=== PATIENT | male | born 1970 | race African-American/Black ===

== ENCOUNTER → 2019-01-04 | Outpatient (CLI) | payer OTHER ==
--- NOTE | 2019-01-04 12:27 | MR ---
EXAMINATION TYPE: MR shoulder RT wo con DATE OF EXAM: 01/04/2019 COMPARISON: None HISTORY: Right shoulder pain TECHNIQUE: Multiplanar, multisequence imaging of the right shoulder is performed without contrast. FINDINGS: Rotator Cuff: There is a partial thickness intrasubstance tear of the anterior distal fibers of the s upraspinatus measuring 1.2 x 1.0 for centimeters. There are also 3 separate 3 mm insertional fiber ar ticular surface tears of the supraspinatus. There is moderate supraspinatus tendinopathy with alterat ion of the intrinsic signal. There is an intrasubstance tear of the myotendinous junction of the infraspinatus measuring 1 cm by a pproximately 1.3 cm. There is articular surface tear of the distal fibers of the infraspinatus measur ing 1.1 cm and articular surface fenestration with multifocal subcentimeter tears at the insertional fibers of the infraspinatus. There is mild infraspinatus tendinopathy with alteration of the intrinsi c signal. The teres minor and subscapularis are unremarkable in volume and signal. Acromioclavicular Joint: There is moderate acromioclavicular arthropathy with capsular hypertrophy, s mall marginal osteophytes and joint space narrowing. This does impress upon the supraspinatus creatin g mild internal impingement. Glenohumeral Joint: Slight chondral heterogeneity is seen of the humeral head with chondral thinning. Labrum: The labrum appears grossly intact given limitation of non-arthrogram study. Biceps Tendon: The long head of biceps is in normal location within bicipital groove. Bone marrow signal: No focal abnormal marrow signal is appreciated. Other: There is a very small amount of fluid in the subcoracoid and subdeltoid/subacromial bursa. IMPRESSION: 1. Multifocal partial-thickness tears of the supraspinatus including an intrasubstance tear measuring 1.2 cm and 3 separate insertional fiber 3 mm articular surface tears superimposed upon moderate tend inopathy. 2. Fenestration of the insertional fibers of the infraspinatus and 1.3 cm intrasubstance tear of the myotendinous junction superimposed upon mild infraspinatus tendinopathy. 3. Moderate acromio clavicular arthropathy resulting in mild internal impingement. 4. Very small amount of fluid in the subcoracoid and subdeltoid/subacromial bursa that may clinically correlate with bursitis.
== END ==
LOC: RADMRIMAIN 11:17
PROVIDERS: ATTEND Orthopaedic Surgery
DX: M75.101 Unspecified rotator cuff tear or rupture of right shoulder, not specified as traumatic (principal); M19.011 Primary osteoarthritis, right shoulder

== ENCOUNTER → 2019-02-22 | Outpatient (CLI) | payer SELFPAY ==
[2019-02-22 14:53] LABS: Potassium 4.8 mmol/L (3.5-5.1)
[2019-02-22 15:01] LABS: Basophils % (A) 1 %; Eosinophils # (A) 0.2 k/uL (0-0.7); Eosinophils % (A) 3 %; HCT 45.2 % (39.0-53.0); HGB 14.5 gm/dL (13.0-17.5); Lymphocytes % (A) 34 %; MCH 26.9 pg (25.0-35.0); MCHC 32.1 g/dL (31.0-37.0); Mean Platelet Volume 6.5; Monocytes # (A) 0.4 k/uL (0-1.0); Monocytes % (A) 6 %; Neutrophils # (A) 3.3 k/uL (1.3-7.7); Neutrophils % (A) 55 %; Platelet Count 296 k/uL (150-450); RBC 5.37 m/uL (4.30-5.90); RDW 13.7 % (11.5-15.5)
== END | disposition home or self-care (01) ==
LOC: LABPAT 13:08
PROVIDERS: ATTEND Orthopaedic Surgery
DX: Z01.818 Encounter for other preprocedural examination (principal); M75.41 Impingement syndrome of right shoulder; Z01.812 Encounter for preprocedural laboratory examination
CPT/HCPCS: 36415; 80051; 85025; 93005

== ENCOUNTER 2019-03-03 07:40 | Day surgery (SDC) | payer OTHER ==
[2019-02-28 12:56] VITALS: BMI 38.3
--- NOTE | 2019-03-02 20:19 | HP ---
HISTORY AND PHYSICAL David Lara is a 48-year-old patient seen with progressive right shoulder pain. We discussed treatment options. The patient elected to proceed with right shoulder arthroscopy. Consent was obtained. PAST MEDICAL HISTORY: Hypertension. PAST SURGICAL HISTORY: Knee arthroscopy. MEDICATIONS: Amlodipine. ALLERGIES: None. SOCIAL HISTORY: She denies tobacco use. PHYSICAL EXAMINATION: Flexion 130 degrees, abduction 120 degrees, external rotation is 30 degrees with pain and weakness. There is tenderness along the anterior lateral acromion and rotator cuff insertion site. Positive impingement sign at 90 degrees. Positive drop-arm sign. Distal neurovascular exam is intact. RADIOGRAPHS: Radiographs of the right shoulder revealed no obvious osseous abnormality. An MRI of the right shoulder revealed a partial rotator cuff tear. IMPRESSION: Right shoulder impingement with rotator cuff tear. PLAN: Right shoulder arthroscopy, subacromial decompression, probable arthroscopic rotator cuff repair and debridement. Surgery scheduled for 03/03/2019. MMODL / IJN: [id number] /
[~2019-03-03 07:40] MED LIST: ceFAZolin 3 GM in SODIUM CHLORIDE 0.9% 100 ML IVPB ONE; ceFAZolin IN SWFI 2 GM/20 ML SYRINGE IVP ONE
[2019-03-03] MEDS ORDERED: LACTATED RINGERS 1,000 ML IV ONE ×2 (08:21→10:05)
[2019-03-03] MEDS: LACTATED RINGERS 1,000 ML IV ONE (08:21)
[2019-03-03] MEDS ORDERED: MIDAZOLAM 2 MG/2 ML VIAL IVP ONE (08:32)
--- NOTE | 2019-03-03 08:41 | P.ONQ ---
Anesthesiology Proc Note - PNB - Peripheral Nerve Block Performed Right Interscalene Single Time Out Performed: Yes Procedure Start Time: 08:31 Procedure Stop Time: :36 Indication: Acute Post-Operative Pain, Requested by physician (Dr Wan) Sedation Type: Sedate with meaningful contact maintained Preparation: Sterile Prep Position: Supine Catheter: None Needle Types: On-Q Needle Size: 50mm (2") Needle Gauge: 18, 20 Technique: Ultrasound Injectate: 0.5% Ropivacaine (see comment for volume) (30 mls) Blood Aspirated: No Pain Paresthesia on Injection Noted: No Resistance on Injection: Normal Events: Uneventful and Well Tolerated
[2019-03-03 08:49] VITALS: TEMP 97.6
[2019-03-03] MEDS ORDERED: DEXAMETHASONE SOD PHOSPHATE 10 MG/ML 1 ML VIAL IV ONE (08:55)
[2019-03-03] MEDS ORDERED: ONDANSETRON 4 MG/2 ML VIAL IVP ONE (08:55)
[2019-03-03] MEDS ORDERED: PROPOFOL 10 MG/ML 20 ML VIAL IV ONE (09:52)
[2019-03-03] MEDS ORDERED: ROPIVACAINE 5 MG/ML 30 ML VIAL ONE (09:52)
[2019-03-03] MEDS ORDERED: MIDAZOLAM 2 MG/2 ML VIAL ONE (09:52)
[2019-03-03] MEDS ORDERED: LIDOCAINE 1% INJ 10MG/ML (20 ML MDV) ONE (09:52)
[2019-03-03] MEDS ORDERED: DEXAMETHASONE SOD PHOS (MDV) 100 MG/10 ML VIAL ONE (09:52)
[2019-03-03] MEDS ORDERED: SUCCINYLCHOLINE CHLORIDE 100 MG/5 ML SYR IV ONE (09:52)
[2019-03-03] MEDS ORDERED: fentaNYL (PF) 50 MCG/ML 2 ML AMP ONE (09:52)
--- NOTE | 2019-03-03 11:25 | P.OP ---
Date of Procedure: 03/03/19 Preoperative Diagnosis: Right shoulder impingement Postoperative Diagnosis: 1. Right shoulder rotator cuff tear 2. Right shoulder impingement 3. Right shoulder acromioclavicular joint osteoarthritis 4. Right shoulder partial long head biceps tendon tear Procedure(s) Performed: 1. Right shoulder arthroscopic rotator cuff repair 2. Right shoulder arthroscopic subacromial decompression 3. Right shoulder arthroscopic Thalia procedure 4. Right shoulder arthroscopic biceps tenotomy Implants: 14.75 swivel lock anchor Anesthesia: GETA, regional (Interscalene block) Surgeon: Felipe Wan Apprentice/Lineman #1: Matty Young Estimated Blood Loss (ml): 7 Pathology: none sent Condition: stable Disposition: PACU Indications for Procedure: 48-year-old patient seen with progressive right shoulder pain. After treatment options were discussed, he elected to proceed with arthroscopy. Operative Findings: See description of procedure Description of Procedure: Patient underwent an interscalene block by department of anesthesia for postoperative pain management. The patient was then taken to the operative suite. The patient underwent a general anesthetic by the department of anesthesia. The patient was placed into a lateral position and secured. There was appropriate padding of the bony prominence. Right shoulder was then prepped and draped in normal sterile orthopedic fashion. We placed the extremity in 10 pounds of longitudinal traction. A posterior incision was now made for a posterior working portal site. The trocar and cannula were inserted into the glenohumeral joint. Arthroscopy was initiated. Spinal needle was now inserted anteriorly, to ascertain the anterior working portal site. An incision was now made in that area, a trocar was inserted followed by a probe. There was some mild superficial fraying of the anterior labrum. There was some partial tearing long head biceps tendon hyperemia. I could visualize rotator cuff tear from the glenohumeral joint. I performed an arthroscopic biceps tenotomy. I debrided that superficial labral tear down to stable tissue. The residual labrum was stable. Instruments now removed from glenohumeral joint. Utilizing the posterior working portal site, the trocar and cannula were inserted into the subacromial space. Arthroscopy initiated. I made an incision 2 fingerbreadths lateral to the acromion. I introduced my trocar followed by my ArthroCare ablator. I now began ablating thick subacromial bursal tissue, which exposed the undersurface of the anterior acromion. There was diminished subacromial space. There was a very prominent anterior acromion. A motorized bur was introduced and a subacromial decompression was performed. I also excised some osteophytes off the inferior aspect of the distal clavicle. The AC joint was visualized and noted to be fairly arthritic. The motorized bur was introduced in the anterior portal site and a Thalia procedure was performed without difficulty, decompressing the AC joint nicely. I turned my attention to the rotator cuff. There was a 11.5 cm rotator cuff tear. I debrided the margins getting down to stable tendon tissue. I abraded the footprint with a motorized bur. With the assistance of Pb BELTRAN I passed 2 everted mattress suture through good bites of rotator cuff tendon. I now with the assistance of Pb BELTRAN repaired the tendon right back to the footprint utilizing one 4.75 Arthrex swivel lock anchor. All residual suture limbs were now clipped. We had good compression of the tendon along the entire footprint. I injected 1 mL Renue intra-articular. Instruments now removed from the portal sites. All portal sites were approximated with nylon suture. Sterile dressings were applied followed by a shoulder sling. Matty BELTRAN assisted in this complex case. The patient was awakened, transferred to a bed, and taken to recovery in stable condition.
[2019-03-03 12:55] VITALS: RESP 18
[2019-03-03 13:05] VITALS: BP 148/73; PULSE 87
== END 2019-03-03 13:17 | disposition home or self-care (01) ==
LOC: OR 07:40
PROVIDERS: ATTEND Orthopaedic Surgery
DX: M75.101 Unspecified rotator cuff tear or rupture of right shoulder, not specified as traumatic (principal); M75.41 Impingement syndrome of right shoulder; M19.011 Primary osteoarthritis, right shoulder; S46.111A Strain of muscle, fascia and tendon of long head of biceps, right arm, initial encounter; X58.XXXA Exposure to other specified factors, initial encounter; M25.711 Osteophyte, right shoulder; K21.9 Gastro-esophageal reflux disease without esophagitis; I10 Essential (primary) hypertension; Z79.899 Other long term (current) drug therapy
CPT/HCPCS: 29826; 29827; 29824; 64415; C1713; C1765; J2250; J1100 ×2; J0690; J2405; J2001; J3010; J2795; J0330; J2704

== ENCOUNTER 2019-09-04 03:56 | Emergency (ER) | payer BC, OTHER ==
[2019-09-04] MEDS ORDERED: SODIUM CHLORIDE 0.9% 1,000 ML IV STA (04:20)
[2019-09-04] MEDS ORDERED: MORPHINE SULFATE 4 MG/ML SYRINGE IV STA (04:20)
[2019-09-04] MEDS ORDERED: ONDANSETRON 4 MG/2 ML VIAL IVP STA (04:20)
--- NOTE | 2019-09-04 04:31 | ED ---
Abdominal Pain HPI - General Chief Complaint: Abdominal Pain Stated Complaint: Back Pain Time Seen by Provider: 09/04/19 04:20 Source: patient Mode of arrival: ambulatory Limitations: no limitations - History of Present Illness Initial Comments: David is a 49yo male who presents to the ER today for evaluation of right sided flank pain. Patient reports he developed sudden stabbing pain in his right flank radiating into his pelvis. Pain did not radiate into his testicles or genitals. Pain was associated with some nausea but no vomiting no change in bowel or bladder habits. Patient reports that on Thursday he was constipated to take some milk of magnesia and felt that his urine seemed dark had no dysuria hematuria or urinary frequency. Patient has no history of kidney stones in the past. Patient reports the pain is improved since arrival however he still has pain and when the pain gets severe he becomes nauseated. - Related Data Home Medications Medication Instructions Recorded Confirmed amLODIPine [Norvasc] 5 mg PO DAILY 02/28/19 03/03/19 Previous Rx's Medication Instructions Recorded HYDROcodone/APAP 7.5-325MG [Ventura 1 each PO Q6HR PRN #28 tab 03/03/19 7.5] Ondansetron [Zofran ODT] 4 mg PO Q8HR #12 tab 09/04/19 Ondansetron [Zofran ODT] 4 mg PO Q8HR #12 tab 09/04/19 Tamsulosin [Flomax] 0.4 mg PO DAILY #7 cap 09/04/19 Tamsulosin [Flomax] 0.4 mg PO DAILY #7 cap 09/04/19 Allergies Allergy/AdvReac Type Severity Reaction Status Date / Time No Known Allergies Allergy Verified 09/04/19 04:16 Review of Systems ROS Statement: Those systems with pertinent positive or pertinent negative responses have been documented in the HPI. ROS Other: All systems not noted in ROS Statement are negative. Past Medical History Past Medical History: No Reported History History of Any Multi-Drug Resistant Organisms: None Reported Additional Past Surgical History / Comment(s): right rotator cuff repair, Past Psychological History: No Psychological Hx Reported Smoking Status: Never smoker Past Alcohol Use History: None Reported Past Drug Use History: None Reported General Exam - General Exam Comments Initial Comments: Physical Exam GENERAL: Patient is well-developed and well-nourished. Patient is nontoxic and well- hydrated and is in no distress. HENT: Normocephalic, Atraumatic. EYES: PERRL, EOMI PULMONARY: Unlabored respirations. No audible rales rhonchi or wheezing was noted. CARDIOVASCULAR: There is a regular rate and rhythm without any murmurs gallops or rubs. ABDOMEN: Soft and nontender with normal bowel sounds. Tenderness to percussion of right flank No pulsatile masses SKIN: Skin is clear with no lesions or rashes and otherwise unremarkable. : Deferred NEUROLOGIC: Patient is alert and oriented x3. Moving all extremities spontaneously MUSCULOSKELETAL: Normal extremities with adequate strength and full range of motion. No lower extremity swelling or edema. No calf tenderness. PSYCHIATRIC: Normal psychiatric evaluation. Limitations: no limitations Course Vital Signs 09/04/19 09/04/19 09/04/19 04:12 07:08 07:47 Temperature 98.6 F 97.8 F Pulse Rate 88 68 66 Respiratory 17 20 18 Rate Blood Pressure 149/83 138/86 144/99 O2 Sat by Pulse 99 97 98 Oximetry Medical Decision Making - Medical Decision Making Patient was seen and evaluated history is obtained from patient morphine and Zofran were ordered for discomfort Labs with mildly elevated creatinine, urinalysis with hematuria consistent with nephrolithiasis Patient was reevaluated with only minimal improvement after morphine, Toradol was ordered CT scan was ordered as the patient has no history and has acute kidney injury CT reveals a distal ureteral 7 mm stone at the level of the bladder. There is some mild hydronephrosis. Patient was reevaluated results were discussed, patient's feeling better after Toradol. At this time patient's temporal plan for discharge home and outpatient follow-up. - Lab Data Result diagrams: 09/04/19 04:46 09/04/19 04:46 Lab Results 09/04/19 09/04/19 09/04/19 Range/Units 04:46 04:46 Unknown WBC 10.2 (3.8-10.6) k/uL RBC 5.20 (4.30-5.90) m/uL Hgb 13.9 (13.0-17.5) gm/dL Hct 44.8 (39.0-53.0) % MCV 86.2 (80.0-100.0) fL MCH 26.7 (25.0-35.0) pg MCHC 31.0 (31.0-37.0) g/dL RDW 14.3 (11.5-15.5) % Plt Count 257 (150-450) k/uL Neutrophils % 70 % Lymphocytes % 17 % Monocytes % 5 % Eosinophils % 6 % Basophils % 1 % Neutrophils # 7.2 (1.3-7.7) k/uL Lymphocytes # 1.7 (1.0-4.8) k/uL Monocytes # 0.5 (0-1.0) k/uL Eosinophils # 0.6 (0-0.7) k/uL Basophils # 0.1 (0-0.2) k/uL Sodium 142 (137-145) mmol/L Potassium 4.0 (3.5-5.1) mmol/L Chloride 108 H (98-107) mmol/L Carbon Dioxide 25 (22-30) mmol/L Anion Gap 9 mmol/L BUN 16 (9-20) mg/dL Creatinine 1.28 H (0.66-1.25) mg/dL Est GFR (CKD-EPI)AfAm 75 (>60 ml/min/1.73 sqM) Est GFR (CKD-EPI)NonAf 65 (>60 ml/min/1.73 sqM) Glucose 115 H (74-99) mg/dL Calcium 9.8 (8.4-10.2) mg/dL Total Bilirubin 0.3 (0.2-1.3) mg/dL AST 28 (17-59) U/L ALT 30 (21-72) U/L Alkaline Phosphatase 108 (38-126) U/L Total Protein 7.4 (6.3-8.2) g/dL Albumin 4.1 (3.5-5.0) g/dL Lipase 154 (23-300) U/L Urine Color Light Yellow Urine Appearance Clear (Clear) Urine pH 6.5 (5.0-8.0) Ur Specific Crescent 1.012 (1.001-1.035) Urine Protein Negative (Negative) Urine Glucose (UA) Negative (Negative) Urine Ketones Negative (Negative) Urine Blood Moderate H (Negative) Urine Nitrite Negative (Negative) Urine Bilirubin Negative (Negative) Urine Urobilinogen <2.0 (<2.0) mg/dL Ur Leukocyte Esterase Negative (Negative) Urine RBC 143 H (0-5) /hpf Urine WBC 3 (0-5) /hpf Ur Squamous Epith Cells <1 (0-4) /hpf Urine Mucus Rare H (None) /hpf Disposition Clinical Impression: Flank pain Disposition: HOME SELF-CARE Condition: Stable Instructions (If sedation given, give patient instructions): Kidney Stones (ED) Additional Instructions: Follow up with your primary doctor within 2-3 days. Follow up with a Urologist this week (we will give you a list of urologists, but make sure they accept your insurance). ?Please call as soon as possible for an appointment. You will be given a prescription for Flomax (0.4mg daily) please chart picker the medication as soon as possible and take as directed. Use Motrin (also called Ibuprofen or Advil) 400-800 mg every 6 hours as needed for pain. Take this with food, if you have any stomach discomfort while taking Motrin, you can use TUMS to help. Drink plenty of fluids, avoid caffeine & alcohol. Please continue taking your home medications as directed. Do not use alcohol when taking any medication (especially antibiotics, tylenol or other pain medication) unless you check with the doctor or pharmacist. Any worsening pain, fever, chills, difficulty urinating, or any other concerns, please see your doctor immediately or return to Emergency Department right away. Prescriptions: Tamsulosin [Flomax] 0.4 mg PO DAILY #7 cap Tamsulosin [Flomax] 0.4 mg PO DAILY #7 cap Ondansetron [Zofran ODT] 4 mg PO Q8HR #12 tab Ondansetron [Zofran ODT] 4 mg PO Q8HR #12 tab Is patient prescribed a controlled substance at d/c from ED?: No Referrals: Joe Heard MD [Primary Care Provider] - 1-2 days Channing Florence MD [STAFF PHYSICIAN] - 1-2 days
[2019-09-04 04:48] LABS: Appearance,Urine Clear (Clear); Bilirubin,Urine Negative (Negative); Blood,Urine Moderate (Negative); Color,Urine Light Yellow; Glucose,Urine (UA) Negative (Negative); Ketones,Urine Negative (Negative); Leukocyte Esterase,Urine Negative (Negative); Mucus,Urine Rare /hpf; Nitrite,Urine Negative (Negative); PH, Urine 6.5 (5.0-8.0); Protein,Urine Negative (Negative); RBC,Urine 143 /hpf (0-5); Specific Gravity,Urine 1.012 (1.001-1.035); Squamous Epithelial Cell,Urine <1 /hpf (0-4); Urobilinogen,Urine <2.0 mg/dL (<2.0); WBC,Urine 3 /hpf (0-5)
[2019-09-04 04:55] LABS: Basophils # (A) 0.1 k/uL (0-0.2); Basophils % (A) 1 %; Eosinophils # (A) 0.6 k/uL (0-0.7); Eosinophils % (A) 6 %; HCT 44.8 % (39.0-53.0); HGB 13.9 gm/dL (13.0-17.5); Lymphocytes # (A) 1.7 k/uL (1.0-4.8); Lymphocytes % (A) 17 %; MCH 26.7 pg (25.0-35.0); MCV 86.2 fL (80.0-100.0); Mean Platelet Volume 6.4; Monocytes # (A) 0.5 k/uL (0-1.0); Monocytes % (A) 5 %; Neutrophils # (A) 7.2 k/uL (1.3-7.7); Neutrophils % (A) 70 %; Platelet Count 257 k/uL (150-450); RDW 14.3 % (11.5-15.5); WBC 10.2 k/uL (3.8-10.6)
--- NOTE | 2019-09-04 05:05 | XR ---
EXAM: XR Abdomen, 1 View CLINICAL HISTORY: Abdominal pain. TECHNIQUE: Frontal supine view of the abdomen/pelvis. COMPARISON: None. FINDINGS: Lower thorax: There is elevation of the right hemidiaphragm. No pleural effusions. The heart is normal in size. Intraperitoneal space: Nonspecific bowel gas. No free air. Gastrointestinal tract: Unremarkable. No dilation. Bones/joints: Degenerative disc disease and mild osteoarthritic changes. Vasculature: Pelvic phlebolith are noted. Other findings: Mild to moderate quantity of stool. IMPRESSION: Nonspecific bowel gas pattern. No free air.
[2019-09-04 05:06] LABS: Albumin 4.1 g/dL (3.5-5.0); Calcium 9.8 mg/dL (8.4-10.2); Total Bilirubin 0.3 mg/dL (0.2-1.3); Total Protein 7.4 g/dL (6.3-8.2)
[2019-09-04] MEDS ORDERED: KETOROLAC 30 MG/ML 1 ML VIAL IVP STA (05:31)
[2019-09-04] MEDS ORDERED: ACET/COD 300 MG/30 MG STARTER PACK 6 TAB BTL PO STA (05:37)
--- NOTE | 2019-09-04 07:22 | CT ---
EXAM: CT Abdomen and Pelvis Without Intravenous Contrast, Renal Stone Protocol CLINICAL HISTORY: ITS.REASON CT Reason: flank pain, hematuria TECHNIQUE: Axial computed tomography images of the abdomen and pelvis without intravenous contrast using renal protocol. CTDI is 26.28 mGy and DLP is 1654.9 mGy-cm. This CT exam was performed using one or more of the following dose reduction techniques: automated exposure control, adjustment of the mA and/or kV according to patient size, and/or use of iterative reconstruction technique. COMPARISON: No relevant prior studies available. FINDINGS: Lower thorax: Unremarkable as visualized. ABDOMEN: Liver: Unremarkable. Gallbladder and bile ducts: Unremarkable. No calcified stones. No ductal dilation. Pancreas: Unremarkable. No ductal dilation. Spleen: Unremarkable. No splenomegaly. Adrenals: Unremarkable. No mass. Right kidney and ureter: 7 mm mid to distal right ureteral stone noted in the pelvis with resulting mild to moderate right hydroureteronephrosis and right perinephric and periureteral fat stranding identified. Left kidney and ureter: The left kidney is unremarkable. No obstructing stones. No hydronephrosis. Stomach and bowel: Evaluation of bowel mucosa is limited without contrast. No obstruction. PELVIS: Appendix: A normal caliber appendix is noted in the right lower quadrant. Bladder: Unremarkable. No stones. Reproductive: Unremarkable as visualized. ABDOMEN and PELVIS: Intraperitoneal space: Unremarkable. No free air. No significant fluid collection. Bones/joints: Unremarkable. No acute fracture. No dislocation. Soft tissues: Unremarkable. Vasculature: Unremarkable. No abdominal aortic aneurysm. Lymph nodes: Unremarkable. No enlarged lymph nodes. IMPRESSION: 7 mm mid to distal right ureteral stone noted in the pelvis with resulting mild to moderate right hydroureteronephrosis and right perinephric and periureteral fat stranding identified.
[2019-09-04 07:47] VITALS: BP 144/99; PULSE 66; RESP 18; TEMP 97.8
== END 2019-09-04 07:51 | disposition home or self-care (01) ==
LOC: EC 03:56
DX: R10.2 Pelvic and perineal pain (principal); R79.89 Other specified abnormal findings of blood chemistry; R31.9 Hematuria, unspecified; N13.2 Hydronephrosis with renal and ureteral calculous obstruction; R11.0 Nausea
CPT/HCPCS: 36415; 80053; 83690; 85025; 81001; 74018; 74176; 99284; 96374; 96375 ×2; 96361 ×2; J2270; J2405; J1885

== ENCOUNTER → 2019-10-22 | Outpatient (CLI) | payer OTHER ==
--- NOTE | 2019-10-22 08:00 | MR ---
EXAMINATION TYPE: MR shoulder RT wo con DATE OF EXAM: 10/22/2019 7:47 AM COMPARISON: Previous study dated 01/04/2019. HISTORY: Rt. shoulder pain TECHNIQUE: Multiplanar, multisequence imaging of the right shoulder is performed without contrast. FINDINGS: There is evidence of previous rotator cuff repair. There is no evidence of an os acromiale. There continues to be moderate inflammatory hypertrophic kathrine nges in the right AC joint. There is a 1.5 cm rim rent tear involving the posterior fibers of the sup raspinatus tendon. There is no full-thickness tear or muscular retraction. There is minimal pseudocys tic change in the humeral head, an indirect sign of impingement. The cartilaginous glenoid labrum appears intact. The biceps tendon is attenuated within the biceps tendon groove. I cannot follow its intra-articular course with certainty. IMPRESSION: 1. POSTSURGICAL CHANGE. 2. RECOMMEND TEAR OF THE POSTERIOR FIBERS OF THE SUPERIOR SPINATUS TENDON MEASURING 1.5 CM. 3. I'M UNABLE TO FOLLOW THE INTRA-ARTICULAR COURSE OF THE BICEPS TENDON TO THE BICEPS TENDON ANCHOR.
== END | disposition home or self-care (01) ==
LOC: RADMRIMAIN 07:07
PROVIDERS: ATTEND Orthopaedic Surgery
DX: M25.561 Pain in right knee (principal); Z98.890 Other specified postprocedural states

== ENCOUNTER → 2020-04-30 | Outpatient (CLI) | payer OTHER ==
[2020-04-30 15:36] LABS: Potassium 4.4 mmol/L (3.5-5.1)
[2020-04-30 15:44] LABS: Basophils % (A) 1 %; Eosinophils # (A) 0.2 k/uL (0-0.7); Eosinophils % (A) 2 %; HCT 44.8 % (39.0-53.0); HGB 14.3 gm/dL (13.0-17.5); Lymphocytes # (A) 2.1 k/uL (1.0-4.8); Lymphocytes % (A) 26 %; MCH 28.2 pg (25.0-35.0); Mean Platelet Volume 7.5; Monocytes # (A) 0.4 k/uL (0-1.0); Monocytes % (A) 5 %; Neutrophils % (A) 63 %; Platelet Count 292 k/uL (150-450); RBC 5.09 m/uL (4.30-5.90); RDW 13.7 % (11.5-15.5); WBC 7.9 k/uL (3.8-10.6)
== END | disposition home or self-care (01) ==
LOC: LABPAT 14:23
PROVIDERS: ATTEND Orthopaedic Surgery
DX: Z01.818 Encounter for other preprocedural examination (principal); M75.101 Unspecified rotator cuff tear or rupture of right shoulder, not specified as traumatic
CPT/HCPCS: 36415; 80051; 85025

== ENCOUNTER 2020-05-09 05:29 | Day surgery (SDC) | payer BC, OTHER ==
[2020-05-07 16:09] VITALS: BMI 43.2
--- NOTE | 2020-05-08 14:32 | HP ---
HISTORY AND PHYSICAL Surgery scheduled for 05/09/2020. David Lara is a 50-year-old patient seen with progressive right shoulder pain. We discussed options. He elected to proceed with right shoulder arthroscopy. Consent regarding procedure was obtained. PAST MEDICAL HISTORY: Hypertension. PAST SURGICAL HISTORY: Right shoulder arthroscopy, knee arthroscopy. MEDICATIONS: Amlodipine. ALLERGIES: None. SOCIAL HISTORY: Denies tobacco use. PHYSICAL EXAMINATION: Evaluation of the right shoulder: Flexion 170, abduction 170, external rotation 70 with pain and weakness. There is tenderness along the anterolateral acromion rotator cuff insertion site. His distal neurovascular exam is intact. Radiographs of the right shoulder revealed a conversion to a flat anterior acromion, evidence for previous AC joint resection. A MRI of the right shoulder revealed a 1.5 cm rim rent tear of the supraspinatus. IMPRESSION: 1. Right shoulder rotator cuff tendon tear. 2. Hypertension. PLAN: Right shoulder arthroscopy, rotator cuff tendon repair and debridement. MMODL / IJN: [id number] /
[2020-05-09] MEDS ORDERED: ONDANSETRON 4 MG/2 ML VIAL IVP ONE (05:45)
[2020-05-09] MEDS ORDERED: MIDAZOLAM 2 MG/2 ML VIAL IV PRN (05:45)
[2020-05-09] MEDS ORDERED: HYDROmorphone 0.5 MG/0.5 ML SYRINGE IVP PRN (05:45)
[2020-05-09] MEDS ORDERED: DEXAMETHASONE SOD PHOSPHATE 10 MG/ML 1 ML VIAL IV ONE (05:45)
[2020-05-09] MEDS ORDERED: LACTATED RINGERS 1,000 ML IV SCH (05:45)
[2020-05-09] MEDS ORDERED: SCOPOLAMINE 1.5MG/72HR PATCH TRANSDERM ONE (05:45)
[2020-05-09] MEDS ORDERED: ONDANSETRON 4 MG/2 ML VIAL ONE (06:24)
[2020-05-09 06:29] VITALS: RESP 16
[2020-05-09] MEDS ORDERED: MIDAZOLAM 2 MG/2 ML VIAL ONE (07:21)
[2020-05-09] MEDS ORDERED: fentaNYL (PF) 50 MCG/ML 2 ML AMP ONE (07:21)
[2020-05-09] MEDS ORDERED: SUCCINYLCHOLINE CHLORIDE VIAL 200 MG/10 ML VIAL IV ONE (07:21)
[2020-05-09] MEDS ORDERED: ROPIVACAINE 5 MG/ML 30 ML VIAL ONE (07:21)
[2020-05-09] MEDS ORDERED: PROPOFOL 10 MG/ML 20 ML VIAL IV ONE (07:21)
[2020-05-09] MEDS ORDERED: LIDOCAINE 1% INJ 10MG/ML (20 ML MDV) ONE (07:21)
[2020-05-09] MEDS: ceFAZolin 3 GM in SODIUM CHLORIDE 0.9% 100 ML IVPB ONE ×2 (07:33→07:35)
[2020-05-09] MEDS ORDERED: LACTATED RINGERS 1,000 ML IV ONE (09:15)
--- NOTE | 2020-05-09 09:21 | P.OP ---
Date of Procedure: 05/09/20 Preoperative Diagnosis: Right shoulder rotator cuff tear Postoperative Diagnosis: Right shoulder rotator cuff tear Procedure(s) Performed: Right shoulder arthroscopic rotator cuff repair Implants: 44.75 Arthrex swivel lock anchors Anesthesia: GETA, regional (Interscalene block) Surgeon: Felipe Wan Scoop Driver #1: Matty Young Estimated Blood Loss (ml): 7 Pathology: none sent Condition: stable Disposition: PACU Indications for Procedure: 50-year-old patient who is seen with persistent right shoulder pain with previous history of arthroscopy. MRI revealed recurrent tear. We discussed arthroscopy. He was agreeable. Operative Findings: See description of procedure Description of Procedure: Patient underwent an interscalene block by department of anesthesia. The patient was then taken to the operative suite. The patient underwent a general anesthetic by the department of anesthesia. The patient was placed into a lateral position and secured. There was appropriate padding of the bony prominence. Right shoulder was then prepped and draped in normal sterile orthopedic fashion. We placed the extremity in 10 pounds of longitudinal traction. A posterior incision was now made for a posterior working portal site. The trocar and cannula were inserted into the glenohumeral joint. Arthroscopy was initiated. Spinal needle was now inserted anteriorly, to ascertain the anterior working portal site. An incision was now made in that area, a trocar was inserted followed by a probe. There was some mild grade 1 chondromalacia of the humeral head. The biceps tendon was absent consistent with previous biceps tenotomy. The labrum was probed and found to be stable. At this point instruments removed from glenohumeral joint. Utilizing the posterior working portal site, the trocar and cannula were inserted into the subacromial space. Arthroscopy initiated. I made an incision 2 fingerbreadths lateral to the acromion. I introduced my trocar followed by my ArthroCare ablator. I now began ablating thick subacromial bursal tissue, which exposed the undersurface of the anterior acromion. There was evidence of previous decompression with satisfactory subacromial space present. There was evidence of previous Thalia procedure was stable appearing acromioclavicular joint. I turned my attention to the rotator cuff. I began probing the rotator cuff tendon and noted a perforation along the anterior aspect of the supraspinatus. Upon additional probing it was just anterior to the previous repair. I began abrading the tip tissue and noted that the tissue was very thin as I began debris and tissue and noted that the thin perforation area also included the area of the previous repair. I now removed any residual sutures from previous repair. I then made sure I got down to good jeong tendon tissue peripherally. The defect measured approximately 2 cm. I introduced my motorized bur and abraded the footprint area, getting some petechial bleeding. I now made an accessory portal site off the lateral aspect of the acromion. I punched 2 holes medial for medial row fixation with the assistance of Pb BELTRAN carefully tapping the punch with a mallet as I held the punch and the camera. I now introduced both anchors into the pre-punched holes and Pb BELTRAN tapped them with the mallet as I held anchors and the camera. Pb BELTRAN now screwed the anchors in place a while I held the anchor guide and camera. All 8 limbs of suture were now passed through good bites of rotator cuff tendon. I now punched 2 holes for lateral row fixation again I held the punch and camera while Pb BELTRAN used a mallet to tap in the punch. We now passed sutures through both anchors and individually I introduced the anchors into the pre-punch holes I held the anchor guide in position with one hand holding the camera with the other hand while Pb BELTRAN tensioned the sutures and screwed in the anchors one at a time. All residual suture limbs were now clipped. We had good compression of the tendon along the entire footprint. I injected 1 mL Renyte intra-articular. Instruments now removed from the portal sites. All portal sites were approximated with nylon suture. Sterile dressings were applied followed by a shoulder immobilizer. Matty BELTRAN assisted in this case. The patient was awakened, transferred to a bed, and taken to recovery in stable condition.
[2020-05-09 09:31] VITALS: TEMP 98
--- NOTE | 2020-05-09 09:34 | P.ANPRN ---
Procedure Note - Anesthesia - Nerve Block Performed Right Interscalene Date of Procedure: 05/09/20 Procedure Start Time: 06:51 Procedure Stop Time: 07:05 Location of Patient: PreOp Indication: Acute Post-Operative Pain, Requested by Surgeon (Dr Wan) Sedation Type: Sedate with meaningful contact maintained Preparation: Sterile Prep Position: Supine Catheter: None Needle Types: Pajunk Needle Gauge: 21 Ultrasound used to visualize needle placement: Yes Ultrasound used to observe medication spread: Yes Injectate: 0.5% Ropivacaine (see comment for volume) (20cc) Blood Aspirated: No Pain Paresthesia on Injection Noted: No Resistance on Injection: Normal Image Stored and Saved: Yes Events: Uneventful and Well Tolerated
[2020-05-09 11:36] VITALS: BP 138/81; PULSE 71
== END 2020-05-09 11:35 | disposition home or self-care (01) ==
LOC: OR 05:29
PROVIDERS: ATTEND Orthopaedic Surgery
DX: M75.101 Unspecified rotator cuff tear or rupture of right shoulder, not specified as traumatic (principal); M94.211 Chondromalacia, right shoulder; I10 Essential (primary) hypertension; Z79.899 Other long term (current) drug therapy
CPT/HCPCS: 64415; 76942; 29827; 29826; C1713 ×2; Q4212; J2250; J0330; J1100; J0690; J2405; J2001; J3010; J2795; J2704

== ENCOUNTER → 2023-12-11 | Outpatient (CLI) | payer BC ==
[2023-12-11 18:43] LABS: HCT 47.6 % (39.6-50.0); HGB 15.2 g/dL (13.0-17.0); MCH 27.8 pg (27.0-32.0); MCHC 31.9 g/dL (32.0-37.0); NRBC Per 100 WBC 0 X 10*3/uL (0.00-0.01); Platelet Count 288 X 10*3/uL (140-440); RBC 5.47 X 10*6/uL (4.40-5.60); RDW 13.8 % (11.5-14.5); WBC 7.43 X 10*3/uL (4.50-10.00)
[2023-12-11 19:10] LABS: ALT 45 U/L (10-49); AST 38 U/L (14-35); Albumin 4.2 g/dL (3.8-4.9); Albumin/Globulin Ratio 1.35 Ratio (1.60-3.17); Alkaline Phosphatase 94 U/L (41-126); BUN/Creat Ratio 11.55 Ratio (12.00-20.00); Blood Urea Nitrogen 12.7 mg/dL (9.0-27.0); Calcium 9.7 mg/dL (8.7-10.3); Chloride 105 mmol/L (96-109); Chol/HDL Ratio 4.57 Ratio; Globulin 3.1 g/dL (1.6-3.3); Glucose 106 mg/dL (70-110); LDL Cholesterol,Calculated 111.9 mg/dL (0.0-131.0); Potassium 3.7 mmol/L (3.5-5.5); Sodium 143 mmol/L (135-145); Total Bilirubin 0.4 mg/dL (0.3-1.2); Total Protein 7.3 g/dL (6.2-8.2)
== END | disposition home or self-care (01) ==
LOC: LABWHC1 11:53
PROVIDERS: ATTEND Student in an Organized Health Care Education/Training Program
DX: I12.9 Hypertensive chronic kidney disease with stage 1 through stage 4 chronic kidney disease, or unspecified chronic kidney disease (principal); I49.3 Ventricular premature depolarization; E11.22 Type 2 diabetes mellitus with diabetic chronic kidney disease; E78.5 Hyperlipidemia, unspecified; N18.9 Chronic kidney disease, unspecified
CPT/HCPCS: 36415; 80053; 80061; 82306; 83036; 84443; 85027

== ENCOUNTER → 2024-08-17 | Outpatient (CLI) | payer BC ==
[2024-08-17 16:46] LABS: Basophils # (A) 0.04 X 10*3/uL (0.00-0.10); Basophils % (A) 0.5 %; Eosinophils # (A) 0.12 X 10*3/uL (0.04-0.35); Eosinophils % (A) 1.6 %; HGB 12.6 g/dL (13.0-17.0); Lymphocytes % (A) 18.4 %; MCH 27.6 pg (27.0-32.0); MCHC 32.3 g/dL (32.0-37.0); MCV 85.3 FL (80.0-97.0); Mean Platelet Volume 10.4 FL (9.5-12.2); Monocytes # (A) 0.59 X 10*3/uL (0.20-1.00); Monocytes % (A) 7.7 %; NRBC Per 100 WBC 0 X 10*3/uL (0.00-0.01); Neutrophils # (A) 5.41 X 10*3/uL (1.80-7.70); Platelet Count 195 X 10*3/uL (140-440); RBC 4.57 X 10*6/uL (4.40-5.60); RDW 13.5 % (11.5-14.5); WBC 7.62 X 10*3/uL (4.50-10.00)
[2024-08-17 17:02] LABS: ALT 22 U/L (10-49); AST 33 U/L (14-35); Albumin 4.2 g/dL (3.8-4.9); Alkaline Phosphatase 68 U/L (41-126); BUN/Creat Ratio 13.17 Ratio (12.00-20.00); Blood Urea Nitrogen 15.8 mg/dL (9.0-27.0); Calcium 9.3 mg/dL (8.7-10.3); Carbon Dioxide 22.2 mmol/L (21.6-31.8); Chloride 97 mmol/L (96-109); Chol/HDL Ratio 2.69 Ratio; Glucose 68 mg/dL (70-110); LDL Cholesterol,Calculated 44.4 mg/dL (0.0-131.0); Potassium 3.3 mmol/L (3.5-5.5); Prostate Specific Antigen 2.93 ng/mL (0.000-3.500); Sodium 141 mmol/L (135-145); Total Bilirubin 1.1 mg/dL (0.3-1.2); Total Protein 7.2 g/dL (6.2-8.2); VLDL Calculation 15.86 mg/dL (5.00-40.00)
== END | disposition home or self-care (01) ==
LOC: LABWHC1 12:31
PROVIDERS: ATTEND Internal Medicine Geriatric Medicine
DX: I51.7 Cardiomegaly (principal); E11.65 Type 2 diabetes mellitus with hyperglycemia; N40.0 Benign prostatic hyperplasia without lower urinary tract symptoms
CPT/HCPCS: 36415; 80053; 80061; 83036; 84153; 84443; 85025

== ENCOUNTER → 2024-11-10 | Outpatient (CLI) | payer BC ==
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
== END | disposition home or self-care (01) ==
LOC: RADMRIMAIN 11:11
PROVIDERS: ATTEND Orthopaedic Surgery
DX: S83.241A Other tear of medial meniscus, current injury, right knee, initial encounter (principal); M17.11 Unilateral primary osteoarthritis, right knee; M94.261 Chondromalacia, right knee

== ENCOUNTER → 2024-12-19 | Outpatient (CLI) | payer BC ==
[2024-12-20 02:47] LABS: Anion Gap 12.4 mmol/L (4.00-12.00); Carbon Dioxide 24.6 mmol/L (21.6-31.8); Potassium 3.5 mmol/L (3.5-5.5)
[2024-12-20 02:50] LABS: HGB 13.4 g/dL (13.0-17.0); MCH 27.8 pg (27.0-32.0); MCHC 30.5 g/dL (32.0-37.0); MCV 91.3 FL (80.0-97.0); Mean Platelet Volume 10.9 FL (9.5-12.2); NRBC Per 100 WBC 0 X 10*3/uL (0.00-0.01); Platelet Count 268 X 10*3/uL (140-440); RBC 4.82 X 10*6/uL (4.40-5.60); RDW 13.8 % (11.5-14.5); WBC 7.24 X 10*3/uL (4.50-10.00)
[2024-12-20 02:51] LABS: Basophils # (A) 0.05 X 10*3/uL (0.00-0.10); Basophils % (A) 0.7 %; Eosinophils # (A) 0.18 X 10*3/uL (0.04-0.35); Eosinophils % (A) 2.5 %; Lymphocytes # (A) 2.44 X 10*3/uL (0.90-5.00); Lymphocytes % (A) 33.7 %; Monocytes # (A) 0.43 X 10*3/uL (0.20-1.00); Monocytes % (A) 5.9 %; Neutrophils # (A) 4.11 X 10*3/uL (1.80-7.70); Neutrophils % (A) 56.8 %
== END | disposition home or self-care (01) ==
LOC: LABPAT 15:39
PROVIDERS: ATTEND Orthopaedic Surgery
DX: Z01.812 Encounter for preprocedural laboratory examination (principal); M23.91 Unspecified internal derangement of right knee
CPT/HCPCS: 80051; 85025

== ENCOUNTER → 2025-01-31 | Outpatient (CLI) | payer BC | END | disposition home or self-care (01) | LOC: LABPAT 15:25 | PROVIDERS: ATTEND Orthopaedic Surgery | DX: Z01.812 Encounter for preprocedural laboratory examination (principal); M17.12 Unilateral primary osteoarthritis, left knee; Z22.322 Carrier or suspected carrier of Methicillin resistant Staphylococcus aureus | CPT/HCPCS: 87070 ==

== ENCOUNTER → 2025-02-28 | Outpatient (CLI) | payer BC ==
[2025-02-28 18:13] LABS: Basophils # (A) 0.01 X 10*3/uL (0.00-0.10); Basophils % (A) 0.1 %; Eosinophils # (A) 0.63 X 10*3/uL (0.04-0.35); Eosinophils % (A) 7.3 %; HCT 46.2 % (39.6-50.0); HGB 14.9 g/dL (13.0-17.0); Lymphocytes # (A) 2.55 X 10*3/uL (0.90-5.00); Lymphocytes % (A) 29.6 %; MCH 27.4 pg (27.0-32.0); MCHC 32.3 g/dL (32.0-37.0); MCV 84.9 FL (80.0-97.0); Mean Platelet Volume 10.8 FL (9.5-12.2); Monocytes # (A) 0.56 X 10*3/uL (0.20-1.00); Monocytes % (A) 6.5 %; NRBC Per 100 WBC 0 X 10*3/uL (0.00-0.01); Neutrophils # (A) 4.84 X 10*3/uL (1.80-7.70); Neutrophils % (A) 56.2 %; Platelet Count 246 X 10*3/uL (140-440); RBC 5.44 X 10*6/uL (4.40-5.60); RDW 13.9 % (11.5-14.5); WBC 8.62 X 10*3/uL (4.50-10.00)
[2025-02-28 18:58] LABS: INR 0.99 sec (0.93-1.11); Prothrombin Time 11.1 sec (9.9-11.9)
[2025-02-28 19:10] LABS: Chol/HDL Ratio 4.49 Ratio; LDL Cholesterol,Calculated 134.7 mg/dL (0.0-131.0)
[2025-02-28 19:15] LABS: ALT 27 U/L (10-49); AST 34 U/L (14-35); Albumin 4.8 g/dL (3.8-4.9); Albumin/Globulin Ratio 1.37 Ratio (1.60-3.17); Alkaline Phosphatase 84 U/L (41-126); Blood Urea Nitrogen 15.6 mg/dL (9.0-27.0); Carbon Dioxide 23.9 mmol/L (21.6-31.8); Chloride 105 mmol/L (96-109); Globulin 3.5 g/dL (1.6-3.3); Glucose 66 mg/dL (70-110); Sodium 143 mmol/L (135-145); Total Bilirubin 0.9 mg/dL (0.3-1.2); Total Protein 8.3 g/dL (6.2-8.2)
== END | disposition home or self-care (01) ==
LOC: LABWHC1 15:20
PROVIDERS: ATTEND Internal Medicine Geriatric Medicine
DX: Z00.00 Encounter for general adult medical examination without abnormal findings (principal); E11.65 Type 2 diabetes mellitus with hyperglycemia; E78.2 Mixed hyperlipidemia; R23.3 Spontaneous ecchymoses
CPT/HCPCS: 36415; 80053; 80061; 83036; 84443; 85025; 85610

== ENCOUNTER 2025-03-13 07:58 | Day surgery (SDC) | payer BC ==
--- NOTE | 2025-03-13 05:26 | HP ---
HISTORY AND PHYSICAL DATE OF SURGERY: 03/13/2025 David Lara is a 54-year-old gentleman seen with symptomatic left knee osteoarthritis. After having treatment options discussed, he elected to proceed with left total knee arthroplasty. Consent regarding procedure was obtained. Medical clearance was provided by Dr. Fredo Ibarra. PAST MEDICAL HISTORY: Hypertension. SURGICAL HISTORY: Knee arthroscopy, total hip arthroplasty, shoulder arthroscopy. DAILY MEDICATIONS: Aspirin. ALLERGIES: None reported. SOCIAL HISTORY: Denies current tobacco use. PHYSICAL EVALUATION OF THE LEFT KNEE: His range of motion is 0 to 120 degrees. There is a mild effusion. Tenderness of medial joint line. Positive medial Bal's. Ligaments stable. Hip rotation without pain. Distal neurovascular exam is intact. IMAGING STUDIES: Radiographs of the left knee revealed severe osteoarthritic changes. IMPRESSION: 1. Left knee osteoarthritis. 2. Hypertension. PLAN: Left total knee arthroplasty. MMODL / IJN: [id number] /
[~2025-03-13 07:58] MED LIST changes: +LACTATED RINGERS 1,000 ML IV SCH; +TRANEXAMIC 1,000 MG/100ML-NACL 1,000 MG in SALINE 1 100ML.BAG IVPB PRN; -ceFAZolin 3 GM in SODIUM CHLORIDE 0.9% 100 ML IVPB ONE; -ceFAZolin IN SWFI 2 GM/20 ML SYRINGE IVP ONE
[2025-03-13] MEDS: ACETAMINOPHEN TAB 500 MG TAB PO PRN (08:21)
[2025-03-13] MEDS: MELOXICAM 7.5 MG TAB PO PRN (08:21)
[2025-03-13] MEDS: LACTATED RINGERS 1,000 ML IV ONE ×2 (08:26→13:16)
[2025-03-13] MEDS: ONDANSETRON 4 MG/2 ML VIAL IVP ONE (08:50)
[2025-03-13] MEDS: DEXAMETHASONE SOD PHOSPHATE 4 MG/ML 1 ML VIAL IV ONE (08:50)
[2025-03-13 09:09] VITALS: TEMP 98
[2025-03-13] MEDS: MIDAZOLAM 2 MG/2 ML VIAL IV ONE (09:34)
[2025-03-13] MEDS ORDERED: ROPIVACAINE 5 MG/ML 30 ML VIAL ONE (09:49)
[2025-03-13] MEDS ORDERED: NEOSTIGMINE 1 MG/ML 10 ML VIAL ONE (09:49)
[2025-03-13] MEDS ORDERED: HYDROmorphone (PF) 1 MG/ML ONE (09:49)
[2025-03-13] MEDS ORDERED: ROCURONIUM 10 MG/ML (5 ML VIAL) IV ONE (09:49)
[2025-03-13] MEDS ORDERED: fentaNYL (PF) 50 MCG/ML 2 ML AMP ONE (09:49)
[2025-03-13] MEDS ORDERED: MIDAZOLAM 2 MG/2 ML VIAL ONE (09:49)
[2025-03-13] MEDS ORDERED: LIDOCAINE 4% LTA KIT (4 ML) TOPICAL ONE (09:49)
[2025-03-13] MEDS ORDERED: GLYCOPYRROLATE 0.2 MG/ML 2 ML VIAL ONE (09:49)
[2025-03-13] MEDS ORDERED: PROPOFOL 10 MG/ML 20 ML VIAL IV ONE (09:49)
[2025-03-13] MEDS ORDERED: SUCCINYLCHOLINE CHLORIDE 200 MG/10 ML VIAL IV ONE (09:49)
[2025-03-13] MEDS ORDERED: KETAMINE HCL IN 0.9 % NACL 50 MG/5 ML SYRINGE ONE (09:49)
[2025-03-13] MEDS ORDERED: DEXAMETHASONE SOD PHOSPHATE 4 MG/ML 1 ML VIAL ONE (09:49)
[2025-03-13] MEDS ORDERED: PHENYLEPHRINE-0.9% NACL SYG 1,000 MCG/10 ML SYRINGE ONE (09:49)
[2025-03-13] MEDS: ceFAZolin 3 GM in SODIUM CHLORIDE 0.9% 100 ML IVPB PRN (09:54)
[2025-03-13] MEDS: ceFAZolin 1,000 MG in SODIUM CHLORIDE 0.9% 1,000 ML IRRIGATION ONE (10:07)
[2025-03-13] MEDS: SODIUM CHLORIDE 0.9% 1,000 ML IV ONE (11:07)
--- NOTE | 2025-03-13 12:10 | P.OP ---
Date of Procedure: 03/13/25 Preoperative Diagnosis: Left knee osteoarthritis Postoperative Diagnosis: Left knee osteoarthritis Procedure(s) Performed: Left total knee arthroplasty Implants: 1. DePuy attune size 8 left cruciate retaining cemented femur 2. DePuy attune size 8 fixed-bearing cemented tibial baseplate 3. DePuy attune size 8 fixed-bearing cruciate retaining 6 mm polyethylene tibial insert 4. DePuy attune 41 mm all polyethylene cemented patella Anesthesia: GETA, regional (Adductor canal catheter, iPAQ block) Surgeon: Felipe Wan Building Cleaning Supervisor #1: Matty Young Estimated Blood Loss (ml): 45 Pathology: none sent Condition: stable Disposition: PACU Indications for Procedure: 54-year-old patient seen with symptomatic left knee osteoarthritis. After having treatment options discussed, he elected to proceed with total knee arthroplasty. Operative Findings: See description of procedure Description of Procedure: Patient was taken to the operative suite after having an adductor canal catheter placed by the department of anesthesia. Patient underwent a general anesthetic by the department of anesthesia. Patient was given preoperative IV intake antibiotics and TXA. A well-padded tourniquet was placed about the left lower extremity. The lower extremity was then prepped and draped in the normal sterile orthopedic fashion. The extremity was elevated, a tourniquet was ins ufflated to 300. A standard anterior incision was made sharply through skin. Dissection was taken down through the subcutaneous soft tissues down to the extensor mechanism. A medial arthrotomy was performed, patella was everted and knee was flexed. There was advanced osteoarthritis noted. I introduced my distal intramedullary femoral drill. I then introduced the distal femoral cutting jig. Pb BELTRAN secured the cutting jig with 2 pins. I held retractors in position while Pb BELTRAN performed the distal femoral resection through the guide area we now removed her distal femoral cutting guide. We now placed our 4-in-1 femoral cutting block and positioned and it was secured with 2 pins by Pb BELTRAN while I held the block in position. The distal femoral finishing was now completed. A proximal tibial cutting guide was positioned. I held the guide in the appropriate position with both hands well Pb BELTRAN inserted stabilizing pins into the guide. Proximal tibial cut was made. We now placed a trial femoral component into position, along with an appropriate size tibial tray and insert. We now took the knee through range of motion and had full extension good flexion and good overall soft tissue balance noted. The patella was everted and stabilized with 2 towel clips held by Pb BELTRAN while I performed a flush with patellar quad tendon utilizing a fresh sawblade. We templated the patella, appropriate drill holes were made. An appropriate trial patella was positioned, knee was taken through full range of motion with the patella tracking very nicely. The trial patella was removed. Drill holes were made through the femoral component. All trial components were removed after marking off the appropriate rotation of the tibia. Retractors were now positioned along the proximal tibia. An appropriate keel punch was made with the appropriate size tibial guide by myself on Pb BELTRAN assisted by holding retractors. At this point appropriate size implants were chosen and opened. The joint was irrigated copiously with pulse lavage mechanical irrigation. The wound was irrigated with pulse lavage mechanical irrigation. We mixed antibiotic methylmethacrylate. We placed the knee into flexion. We placed multiple retractors assisted by Pb BELTRAN to expose the proximal tibia. Once the methyl methacrylate was ready, the tibial component was cemented into place removing any excess methylmethacrylate form by both myself and Pb BELTRAN. The femoral component was cemented into place removing the removing any excess methylmethacrylate performed by both myself and Pb BELTRAN. We then inserted the appropriate size polyethylene tibial insert. We made sure that it was locked into position. We took the knee into full extension, and then back in a flexion making sure we had removed any excess methylmethacrylate. The patellar component was then cemented down and secured with clamp. Excess methylmethacrylate removed. We kept the knee in full extension, patellar clamp in position until methylmethacrylate had hardened. Once it had hardened the patellar clamp was removed. The knee was taken through full range of motion. The patella tracked nicely. There was good soft tissue balancing. The tourniquet was now released. Additional hemostasis was achieved via electrocautery. A second gram of TXA was given. The wound again was irrigated with pulse lavage mechanical irrigation. The extensor mechanism was repaired with Vicryl. We checked the repair with range of motion and it was stable. The subcutaneous soft tissues were repaired with Vicryl in layers. The skin was approximated with pernio/Dermabond. Sterile dressings were applied followed by loose web roll and Tee bandage. The patient was transferred to a bed, and taken to recovery in stable and satisfactory condition. Pb BELTRAN assisted with this complex procedure.
[2025-03-13] MEDS ORDERED: HYDROmorphone 2 MG/ML 1 ML SYRINGE IVP PRN (12:11)
[2025-03-13] MEDS ORDERED: NALOXONE 0.4 MG/ML 1 ML VIAL IV PRN (12:11)
[2025-03-13] MEDS ORDERED: HYDROmorphone 0.5 MG/0.5 ML SYRINGE IVP PRN ×2 (12:11)
[2025-03-13] MEDS ORDERED: HYDROcodone/APAP 5-325MG 1 EACH TAB PO PRN (12:11)
--- NOTE | 2025-03-13 12:51 | XR ---
EXAMINATION TYPE: XR knee limited LT DATE OF EXAM: 03/13/2025 CLINICAL HISTORY: Postoperative evaluation Two views of the left knee are submitted. Identified are changes of total knee arthroplasty with fem oral and tibial components appearing well seated. Postsurgical soft tissue changes are noted. Align ment is anatomic. [facility], , 03/13/2025 12:49 PM
[2025-03-13] MEDS: HYDROmorphone 0.5 MG/0.5 ML SYRINGE IVP PRN (12:56)
[2025-03-13] MEDS: ROPIVACAINE 1,100 MG, SODIUM CHLORIDE 0.9% 500 ML 330 ML, EMPTY PAIN BALL 1 EACH MISCELLANE PRN (12:57)
[2025-03-13 13:08] VITALS: RESP 16
[2025-03-13] MEDS: IV FLUID CONTINUATION 1,000 ML IV ONE ×2 (13:17→13:57)
--- NOTE | 2025-03-13 14:11 | P.ANPRN ---
Procedure Note - Anesthesia - Nerve Block Performed Right Adductor Canal Infusion Time Out Performed: Yes Date of Procedure: 03/13/25 Procedure Start Time: : Procedure Stop Time: Location of Patient: PreOp Indication: Acute Post-Operative Pain, Requested by Surgeon Sedation Type: Sedate with meaningful contact maintained Preparation: Sterile Prep, Sterile Dressing Position: Supine Catheter: Indwelling Needle Types: Pajunk Needle Gauge: 21 Ultrasound used to visualize needle placement: Yes Ultrasound used to observe medication spread: Yes Blood Aspirated: No Pain Paresthesia on Injection Noted: No Resistance on Injection: Normal Image Stored and Saved: Yes Events: Uneventful and Well Tolerated (Ropivacaine 0.5% 20 cc plus dexamethasone 4 mg)
--- NOTE | 2025-03-13 14:13 | P.ANPRN ---
Procedure Note - Anesthesia - Nerve Block Performed Right iPack Single Time Out Performed: Yes Date of Procedure: 03/13/25 Procedure Start Time: Procedure Stop Time: Location of Patient: PreOp Indication: Acute Post-Operative Pain, Requested by Surgeon Sedation Type: Sedate with meaningful contact maintained Preparation: Sterile Prep Position: Left Lateral Needle Types: Pajunk Needle Gauge: 21 Ultrasound used to visualize needle placement: Yes Ultrasound used to observe medication spread: Yes Blood Aspirated: No Pain Paresthesia on Injection Noted: No Resistance on Injection: Normal Image Stored and Saved: Yes Events: Uneventful and Well Tolerated (Ropivacaine 0.5% 20 cc plus dexamethasone 4 mg)
[2025-03-13] MEDS: HYDROcodone/APAP 7.5-325MG 1 EACH TAB PO PRN (15:31)
[2025-03-13 16:06] VITALS: PULSE 86
[2025-03-13] MEDS: ceFAZolin 3 GM in SODIUM CHLORIDE 0.9% 100 ML IVPB ONE (16:06)
[2025-03-13] MEDS: ONDANSETRON 4 MG/2 ML VIAL IVP PRN (17:06)
[2025-03-13 17:16] VITALS: BP 137/83
== END 2025-03-13 17:52 | disposition home health service (06) ==
LOC: OR 07:58
PROVIDERS: ATTEND Orthopaedic Surgery
DX: M17.12 Unilateral primary osteoarthritis, left knee (principal); I10 Essential (primary) hypertension; G89.18 Other acute postprocedural pain; Z96.652 Presence of left artificial knee joint
CPT/HCPCS: 27447; 97535; 97166; 64448; 64474; 73560; C1776; C1713 ×2; C1751; J2250; J0330; J1100; J2710; J0690 ×2; J2405; J3010; J1171 ×2; J2795; J2704; J2371; J1596

== ENCOUNTER 2025-06-05 08:36 | Day surgery (SDC) | payer BC ==
--- NOTE | 2025-06-05 07:38 | HP ---
HISTORY AND PHYSICAL ANTICIPATED DATE OF SURGERY: 06/05/2025. HISTORY OF PRESENT ILLNESS: David Lara is a 55-year-old patient seen with persistent left knee adhesions with history of previous total knee arthroplasty. We discussed options. He elected to proceed with manipulation under anesthesia, left knee. Consent was obtained. PAST MEDICAL HISTORY: Hypertension. SURGICAL HISTORY: Knee arthroscopy, total knee arthroplasty, and shoulder arthroscopy. DAILY MEDICATIONS: 1. Aspirin. 2. Hydrochlorothiazide. SOCIAL HISTORY: He denies tobacco use. PHYSICAL EVALUATION OF THE LEFT KNEE: His range of motion is -2/3 to 90 degrees. His ligaments are stable. Incision is well healed. Distal neurovascular exam is intact. IMAGING STUDIES: Radiographs of the left knee revealed a stable total knee arthroplasty. IMPRESSION: 1. Left knee adhesive capsulitis. 2. Left total knee arthroplasty. 3. Hypertension. PLAN: Left knee manipulation under anesthesia. MMODL / IJN: [id number] /
[~2025-06-05 08:36] MED LIST changes: +HYDROmorphone 0.5 MG/0.5 ML SYRINGE IVP PRN; -LACTATED RINGERS 1,000 ML IV SCH; -TRANEXAMIC 1,000 MG/100ML-NACL 1,000 MG in SALINE 1 100ML.BAG IVPB PRN
[2025-06-05] MEDS: IV FLUID CONTINUATION 1,000 ML IV ONE (09:00)
[2025-06-05] MEDS: LACTATED RINGERS 1,000 ML IV SCH (09:16)
[2025-06-05] MEDS: ONDANSETRON 4 MG/2 ML VIAL IVP ONE (09:19)
[2025-06-05] MEDS: DEXAMETHASONE SOD PHOSPHATE 4 MG/ML 1 ML VIAL IV ONE (09:19)
[2025-06-05] MEDS ORDERED: fentaNYL (PF) 50 MCG/ML 2 ML AMP ONE (09:48)
[2025-06-05] MEDS ORDERED: KETOROLAC 15 MG/ML 1 ML VIAL ONE (09:48)
[2025-06-05] MEDS ORDERED: PROPOFOL 10 MG/ML 20 ML VIAL IV ONE (09:48)
--- NOTE | 2025-06-05 09:56 | P.OP ---
Date of Procedure: 06/05/25 Preoperative Diagnosis: Left knee adhesive capsulitis Postoperative Diagnosis: Left knee adhesive capsulitis Procedure(s) Performed: Manipulation under anesthesia left knee Anesthesia: MAC Surgeon: Felipe Wan Estimated Blood Loss (ml): 0 Pathology: none sent Condition: stable Disposition: PACU Indications for Procedure: 55-year-old gentleman seen with persistent left adhesive capsulitis with history of previous total knee arthroplasty. After having treatment options discussed, he elected to proceed with manipulation under anesthesia. Operative Findings: See description of procedure Description of Procedure: Patient was taken to a monitored anesthesia area. After obtaining consent he underwent IV sedation by the department of anesthesia. Once sufficient anesthesia was noted I manipulated the knee achieving full extension and 150 degrees of flexion with audible tearing of the adhesions. I now took the knee through range of motion and noted full range of motion. The patient was awakened having tolerated the procedure well. He will proceed with range of motion and physical therapy as instructed.
[2025-06-05 10:02] VITALS: TEMP 97.1
[2025-06-05 10:35] VITALS: RESP 15
[2025-06-05 10:50] VITALS: BP 127/95; PULSE 80
== END 2025-06-05 11:13 | disposition home or self-care (01) ==
LOC: OR 08:36
PROVIDERS: ATTEND Orthopaedic Surgery
DX: M75.02 Adhesive capsulitis of left shoulder (principal); I10 Essential (primary) hypertension; M24.662 Ankylosis, left knee; Z96.652 Presence of left artificial knee joint
CPT/HCPCS: 27570; J1100; J2405; J3010; J1885; J2704